=== PATIENT | female | born 1930 | race Caucasian/White ===

== ENCOUNTER 2016-03-21 10:07 | Emergency (ER) | payer OTHER ==
[~2016-03-21] VITALS: Ht 170.2 cm; Wt 61.3 kg
[2016-03-21] MEDS ORDERED: BUSPAR7.5 MG PO ×2 (10:17)
[2016-03-21] MEDS ORDERED: LORAZEPAM0.5 MG PO (10:17)
[2016-03-21] MEDS ORDERED: GABAPENTIN300 MG PO (10:17)
[2016-03-21] MEDS ORDERED: PAROXETINE HCL20 MG PO (10:17)
[2016-03-21] MEDS ORDERED: TOLTERODINE TART4 MG PO (10:18)
[2016-03-21] MEDS ORDERED: RALOXIFENE HCL60 MG PO (10:18)
[2016-03-21] MEDS ORDERED: DONEPEZIL HCL5 MG PO (10:18)
[2016-03-21] MEDS ORDERED: SIMVASTATIN40 MG PO (10:18)
[2016-03-21 11:41] LABS: EOSINOPHIL (%) 1.2 % (0-5); EOSINOPHIL COUNT 0.1 K/uL (0-0.3); IMMATURE GRANULOCYTE (%) 0.2 % (0.0-0.7); IMMATURE GRANULOCYTE COUNT 0.2 K/uL; LYMPHOCYTE COUNT 1.7 K/uL (1.0-2.8); MCH 30.6 PG (29.0-34.0); MCHC 33.6 G/DL (30.0-36.0); MCV 91.1 FL (83-99); MEAN PLAT.VOLUME 9.3 uM^3 (9.5-12.4); MONOCYTE COUNT 0.7 K/uL (0-0.8); NEUTROPHIL COUNT 6.7 K/uL (1.8-6.4); PLATELET COUNT 169 K/uL (156-360); RBC DIS.WIDTH-CV 14.2 % (11.8-14.6); RBC DIS.WIDTH-SD 45.6 % (39-53); RED BLOOD COUNT 4.28 M/uL (3.80-5.20); WHITE BLOOD COUNT 9.2 K/uL (4.1-10.2)
[2016-03-21 12:25] LABS: CHLORIDE 107 mEq/L (99-109); POTASSIUM 4.6 mEq/L (3.7-5.4); SODIUM 140 mEq/L (136-147)
[2016-03-21 12:26] LABS: GLUCOSE 104 mg/dL (70-99)
[2016-03-21 12:28] LABS: ANION GAP 9 MEQ/L (2-14)
[2016-03-21 12:30] LABS: GFR ESTIMATE (CALCULATED) > 59 mL/min/
[2016-03-21 12:31] LABS: UREA NITROGEN (BUN) 20 mg/dL (9-23)
[2016-03-21 13:08] LABS: ADD MIUA? YES; BILIRUBIN NEGATIVE; BLOOD NEGATIVE; COLOR YELLOW ((YELLOW)); GLUCOSE (STRIP) NEGATIVE; KETONES NEGATIVE; LEUKOCYTES SMALL; NITRITE NEGATIVE; PROTEIN (STRIP) NEGATIVE; SPECIFIC GRAVITY 1.022 (1.000-1.030)
[2016-03-21 13:31] LABS: BACTERIA RARE; CASTS NONE SEEN /LPF; CRYSTALS NONE SEEN; EPITHELIAL CELLS 1+; MUCUS NONE SEEN; RED BLOOD CELLS NONE SEEN /HPF (0-5); UCUL ADDED? NO; WHITE BLOOD CELLS RARE /HPF (0-5)
[2016-03-21] MEDS ORDERED: KEFLEX500 MG PO (13:58)
[2016-03-21 15:58] VITALS: BP 114/66
== END 2016-03-21 14:15 | disposition home or self-care (01) ==
LOC: EME 10:07
PROVIDERS: Emergency Medicine
DX: N39.0 Urinary tract infection, site not specified (principal); R41.82 Altered mental status, unspecified; E78.5 Hyperlipidemia, unspecified; Z87.891 Personal history of nicotine dependence
CPT/HCPCS: 70450; 71020; 80048; 81003; 85025; 99281; 99284

== ENCOUNTER 2016-07-03 07:40 | Emergency (ER) | payer OTHER ==
[~2016-07-03] VITALS: Ht 165.1 cm; Wt 60.2 kg
[~2016-07-03 07:40] MED LIST: BUSPAR7.5 MG PO; DONEPEZIL HCL5 MG PO; GABAPENTIN300 MG PO; KEFLEX500 MG PO; LORAZEPAM0.5 MG PO; PAROXETINE HCL20 MG PO; RALOXIFENE HCL60 MG PO; SIMVASTATIN40 MG PO; TOLTERODINE TART4 MG PO
[2016-07-03] MEDS ORDERED: CELECOXIB200 MG PO (07:58)
[2016-07-03 08:29] LABS: ADD MIUA? YES; BILIRUBIN NEGATIVE; BLOOD NEGATIVE; COLOR AMBER ((YELLOW)); GLUCOSE (STRIP) NEGATIVE; KETONES NEGATIVE; LEUKOCYTES SMALL; NITRITE POSITIVE; PROTEIN (STRIP) 100; SPECIFIC GRAVITY 1.015 (1.000-1.030)
[2016-07-03 08:56] LABS: BACTERIA 3+ /HPF; EPITHELIAL CELLS NONE SEEN /HPF; MUCUS NONE SEEN /LPF; UCUL ADDED? YES; WHITE BLOOD CELLS TNTC /HPF (0-5)
[2016-07-03 08:57] LABS: HEMATOCRIT 36.5 % (36.0-46.0); MCH 30.7 PG (29.0-34.0); MCHC 32.6 G/DL (30.0-36.0); MCV 94.1 FL (83-99); MEAN PLAT.VOLUME 9.7 uM^3 (9.5-12.4); PLATELET COUNT 167 K/uL (156-360); RBC DIS.WIDTH-CV 15.2 % (11.8-14.6); RED BLOOD COUNT 3.88 M/uL (3.80-5.20); WHITE BLOOD COUNT 8.9 K/uL (4.1-10.2)
[2016-07-03 09:08] LABS: CHLORIDE 106 mEq/L (99-109); POTASSIUM 4.2 mEq/L (3.7-5.4); SODIUM 137 mEq/L (136-147)
[2016-07-03 09:10] LABS: GLUCOSE 102 mg/dL (70-99)
[2016-07-03 09:12] LABS: ANION GAP 10 MEQ/L (2-14); TOTAL BILIRUBIN 1.5 mg/dL (0.0-1.0)
[2016-07-03 09:14] LABS: ALKALINE PHOSPHATASE 67 IU/L (3-129); GFR ESTIMATE (CALCULATED) 50 mL/min/
[2016-07-03 09:15] LABS: UREA NITROGEN (BUN) 18 mg/dL (9-23)
[2016-07-03] MEDS ORDERED: CIPRO500 MG PO (09:17)
[2016-07-03 09:36] VITALS: BP 120/59
== END 2016-07-03 09:38 | disposition home or self-care (01) ==
LOC: EME 07:40
PROVIDERS: Nurse Practitioner Family
DX: N39.0 Urinary tract infection, site not specified (principal); F41.9 Anxiety disorder, unspecified; F43.0 Acute stress reaction; E78.5 Hyperlipidemia, unspecified; Z85.3 Personal history of malignant neoplasm of breast; Z87.891 Personal history of nicotine dependence
CPT/HCPCS: 80053; 81003; 85027; 87077; 87086; 87186; 99281; 99284

== ENCOUNTER 2016-08-28 09:34 | Emergency (ER) | payer OTHER ==
[~2016-08-28] VITALS: Ht 165.1 cm; Wt 58.5 kg
[~2016-08-28 09:34] MED LIST changes: +CELECOXIB200 MG PO; +CIPRO500 MG PO
[2016-08-28 10:30] LABS: MCH 30.1 PG (29.0-34.0); MCV 91.5 FL (83-99); MEAN PLAT.VOLUME 10.3 uM^3 (9.5-12.4); PLATELET COUNT 172 K/uL (156-360); RBC DIS.WIDTH-CV 13.8 % (11.8-14.6); RBC DIS.WIDTH-SD 46.7 % (39-53); RED BLOOD COUNT 4.81 M/uL (3.80-5.20); WHITE BLOOD COUNT 7.2 K/uL (4.1-10.2)
[2016-08-28 10:38] LABS: CHLORIDE 108 mEq/L (99-109); POTASSIUM 4.2 mEq/L (3.7-5.4); SODIUM 139 mEq/L (136-147)
[2016-08-28 10:39] LABS: GLUCOSE 90 mg/dL (70-99)
[2016-08-28 10:41] LABS: ANION GAP 8 MEQ/L (2-14)
[2016-08-28 10:43] LABS: GFR ESTIMATE (CALCULATED) 50 mL/min/
[2016-08-28 10:44] LABS: UREA NITROGEN (BUN) 17 mg/dL (9-23)
[2016-08-28 10:55] LABS: ADD MIUA? YES; BILIRUBIN NEGATIVE; BLOOD NEGATIVE; COLOR YELLOW ((YELLOW)); GLUCOSE (STRIP) NEGATIVE; KETONES NEGATIVE; LEUKOCYTES TRACE; NITRITE NEGATIVE; PROTEIN (STRIP) NEGATIVE; SPECIFIC GRAVITY 1.012 (1.000-1.030)
[2016-08-28] MEDS ORDERED: PAXIL40 MG PO (11:11)
[2016-08-28] MEDS ORDERED: BACTRIM,SEPT1 TABLET PO (11:12)
[2016-08-28 11:14] LABS: EPITHELIAL CELLS 1+ /HPF; MUCUS 1+ /LPF
[2016-08-28 11:16] LABS: BACTERIA NONE SEEN /HPF; CALCIUM OXALATE CRYSTALS RARE /HPF; CASTS PRESENT /LPF; CRYSTALS PRESENT; HYALINE CASTS RARE /LPF; RED BLOOD CELLS 0-5 /HPF (0-5); UCUL ADDED? NO; URIC ACID CRYSTALS 3+ /HPF; WHITE BLOOD CELLS 0-5 /HPF (0-5)
[2016-08-28 13:00] VITALS: BP 106/70
== END 2016-08-28 13:02 | disposition home or self-care (01) ==
LOC: EME 09:34
DX: N39.0 Urinary tract infection, site not specified (principal); R32 Unspecified urinary incontinence; K59.00 Constipation, unspecified; E78.5 Hyperlipidemia, unspecified; Z90.12 Acquired absence of left breast and nipple; Z85.3 Personal history of malignant neoplasm of breast; Z96.641 Presence of right artificial hip joint; Z88.0 Allergy status to penicillin; Z87.891 Personal history of nicotine dependence
CPT/HCPCS: 74020; 80048; 81003; 85027; 99281; 99284

== ENCOUNTER 2016-11-30 20:31 | Emergency (ER) | payer OTHER ==
[~2016-11-30] VITALS: Ht 162.6 cm; Wt 60.1 kg
[~2016-11-30 20:31] MED LIST changes: +BACTRIM,SEPT1 TABLET PO; +PAXIL40 MG PO
[2016-11-30 21:38] LABS: HEMATOCRIT 43.6 % (36.0-46.0); MCH 30.2 PG (29.0-34.0); MCHC 33.5 G/DL (30.0-36.0); MCV 90.1 FL (83-99); MEAN PLAT.VOLUME 9.7 uM^3 (9.5-12.4); PLATELET COUNT 191 K/uL (156-360); RBC DIS.WIDTH-CV 13.8 % (11.8-14.6); RBC DIS.WIDTH-SD 45.3 % (39-53); RED BLOOD COUNT 4.84 M/uL (3.80-5.20); WHITE BLOOD COUNT 9.2 K/uL (4.1-10.2)
[2016-11-30 21:49] LABS: CHLORIDE 104 mEq/L (99-109); SODIUM 139 mEq/L (136-147)
[2016-11-30 21:50] LABS: GLUCOSE 96 mg/dL (70-99)
[2016-11-30 21:52] LABS: ANION GAP 11 MEQ/L (2-14)
[2016-11-30 21:54] LABS: GFR ESTIMATE (CALCULATED) > 59 mL/min/
[2016-11-30 21:55] LABS: UREA NITROGEN (BUN) 22 mg/dL (9-23)
[2016-11-30 23:04] LABS: TROP-I INTERPRETATION NEGATIVE; TROPONIN-I 0.01 ng/mL (0.0-0.30)
[2016-12-01 00:47] LABS: ADD MIUA? YES; BILIRUBIN NEGATIVE; BLOOD SMALL; COLOR YELLOW ((YELLOW)); GLUCOSE (STRIP) NEGATIVE; KETONES NEGATIVE; LEUKOCYTES LARGE; NITRITE NEGATIVE; PROTEIN (STRIP) NEGATIVE; SPECIFIC GRAVITY 1.014 (1.000-1.030); UROBILINOGEN 0.2 MG/DL (0.2-1.0)
[2016-12-01 01:05] LABS: BACTERIA NONE SEEN /HPF; EPITHELIAL CELLS RARE /HPF; MUCUS TRACE /LPF; UCUL ADDED? YES; WHITE BLOOD CELLS 30-40 /HPF (0-5)
[2016-12-01 02:03] VITALS: BP 133/87
== END 2016-12-01 02:04 | disposition home or self-care (01) ==
LOC: EME 20:31
PROVIDERS: Emergency Medicine
DX: R42 Dizziness and giddiness (principal); N39.0 Urinary tract infection, site not specified; E78.5 Hyperlipidemia, unspecified; M19.90 Unspecified osteoarthritis, unspecified site; F32.9 Major depressive disorder, single episode, unspecified; F41.9 Anxiety disorder, unspecified; Z85.3 Personal history of malignant neoplasm of breast; Z87.891 Personal history of nicotine dependence; Z88.0 Allergy status to penicillin
CPT/HCPCS: 70450; 71020; 80048; 81003; 84484; 85027; 87086; 93005; 99281; 99284

== ENCOUNTER 2017-05-14 18:59 | Inpatient (IN) | payer OTHER ==
[~2017-05-14] VITALS: Ht 165.1 cm; Wt 65.1 kg
[2017-05-14 20:13] LABS: BASOPHIL (%) 0.3 % (0-1); EOSINOPHIL (%) 0.9 % (0-5); EOSINOPHIL COUNT 0.1 K/uL (0-0.3); HEMOGLOBIN 15.4 G/DL (11.9-15.5); IMMATURE GRANULOCYTE (%) 0.4 % (0.0-0.7); LYMPHOCYTE (%) 12.4 % (15-42); LYMPHOCYTE COUNT 1.7 K/uL (1.0-2.8); MCH 30.7 PG (29.0-34.0); MONOCYTE (%) 8.3 % (3-12); MONOCYTE COUNT 1.2 K/uL (0-0.8); NEUTROPHIL (%) 77.7 % (45-76); NEUTROPHIL COUNT 10.9 K/uL (1.8-6.4); PLATELET COUNT 173 K/uL (156-360); RBC DIS.WIDTH-CV 13.3 % (11.8-14.6); RBC DIS.WIDTH-SD 42.7 % (39-53); RED BLOOD COUNT 5.01 M/uL (3.80-5.20)
[2017-05-14 20:20] LABS: PTT 27.4 SEC (25-37)
[2017-05-14 20:29] LABS: MCV 87.8 FL (83-99)
[2017-05-14 20:36] LABS: ALBUMIN 4.7 g/dL (3.2-4.8)
[2017-05-14 20:37] LABS: CHLORIDE 105 mEq/L (99-109); POTASSIUM 4.1 mEq/L (3.7-5.4); SODIUM 139 mEq/L (136-147)
[2017-05-14 20:39] LABS: GLUCOSE 101 mg/dL (70-99); TOTAL PROTEIN 7.1 g/dL (6.4-8.3)
[2017-05-14 20:41] LABS: TOTAL BILIRUBIN 1.2 mg/dL (0.0-1.0)
[2017-05-14 20:42] LABS: ALKALINE PHOSPHATASE 90 IU/L (3-129)
[2017-05-14 20:43] LABS: CREATININE 0.7 mg/dL (0.6-1.3); GFR ESTIMATE (CALCULATED) > 59 mL/min/
[2017-05-14 20:44] LABS: AST (GOT) 28 IU/L (2-34); UREA NITROGEN (BUN) 23 mg/dL (9-23)
[2017-05-14 20:46] LABS: ALT (GPT) 16 IU/L (3-49)
[2017-05-14] MEDS ORDERED: NIFEDIPINE ER30 MG PO (21:00)
[2017-05-14] MEDS ORDERED: SIMVASTATIN20 MG PO (21:02)
[2017-05-14] MEDS ORDERED: ESTRADIOL42.5 GM VG (21:02)
[2017-05-14] MEDS ORDERED: PAROXETINE HCL40 MG PO (21:02)
[2017-05-14] MEDS ORDERED: BUSPAR15 MG PO (21:03)
[2017-05-14] MEDS ORDERED: VITAMIN B-122500 MCG SL (21:13)
[2017-05-14] MEDS ORDERED: LO-DOSE ASPIRIN81 M2 PO (21:17)
[2017-05-14] MEDS ORDERED: CRANBERRY URIN1 EACH PO (21:17)
[2017-05-14] MEDS ORDERED: STOOL SOFTENER100 M1 PO (21:18)
[2017-05-14] MEDS ORDERED: VITAMIN D32000 UNI1 PO (21:20)
[2017-05-14 22:05] LABS: APPEARANCE CLEAR ((CLEAR)); BILIRUBIN NEGATIVE; BLOOD SMALL; COLOR STRAW ((YELLOW)); GLUCOSE (STRIP) NEGATIVE; KETONES 5; LEUKOCYTES NEGATIVE; NITRITE NEGATIVE; PROTEIN (STRIP) NEGATIVE; SPECIFIC GRAVITY 1.008 (1.000-1.030); UROBILINOGEN 0.2 MG/DL (0.2-1.0)
[2017-05-14 23:01] LABS: BACTERIA NONE SEEN /HPF; EPITHELIAL CELLS RARE /HPF; MUCUS NONE SEEN /LPF; RED BLOOD CELLS 0-5 /HPF (0-5); UCUL ADDED? NO; WHITE BLOOD CELLS 0-5 /HPF (0-5)
[2017-05-15 02:41] VITALS: BP 155/70
[2017-05-15 08:33] VITALS: BP 137/63
[2017-05-15 16:03] VITALS: BP 147/64
[2017-05-15 19:57] VITALS: BP 129/60
[2017-05-15 23:19] VITALS: BP 140/76
[2017-05-16 04:29] VITALS: BP 153/66
[2017-05-16 07:43] VITALS: BP 132/63
[2017-05-16 10:03] LABS: HEMATOCRIT 27.4 % (36.0-46.0); MCH 30.3 PG (29.0-34.0); MCHC 33.2 G/DL (30.0-36.0); MCV 91.3 FL (83-99); RBC DIS.WIDTH-SD 46.9 % (39-53)
[2017-05-16 10:11] LABS: HEMOGLOBIN 9.1 G/DL (11.9-15.5)
[2017-05-16 10:14] LABS: CHLORIDE 107 MEQ/L (99-109); CREATININE 0.6 MG/DL (0.6-1.3); GFR ESTIMATE (CALCULATED) > 59 mL/min/; GLUCOSE 151 mg/dL (70-99); POTASSIUM 3.6 MEQ/L (3.7-5.4); SODIUM 136 MEQ/L (136-147); UREA NITROGEN (BUN) 17 mg/dL (9-23)
[2017-05-16 10:20] LABS: BASOPHIL (%) 0.3 % (0-1); EOSINOPHIL COUNT 0.1 K/uL (0-0.3); IMMATURE GRANULOCYTE (%) 0.2 % (0.0-0.7); LYMPHOCYTE COUNT 0.9 K/uL (1.0-2.8); MONOCYTE (%) 11.5 % (3-12); MONOCYTE COUNT 1.2 K/uL (0-0.8); NEUTROPHIL COUNT 7.8 K/uL (1.8-6.4); PLAT.SUFFICIENCY DECREASED
[2017-05-16 10:21] LABS: PLATELET COUNT 109 K/uL (156-360)
[2017-05-16 11:38] VITALS: BP 134/64
[2017-05-16 16:38] VITALS: BP 130/86
[2017-05-16 20:00] VITALS: BP 116/54
[2017-05-16 23:38] VITALS: BP 141/61
[2017-05-17 03:54] VITALS: BP 138/65
[2017-05-17 06:14] LABS: BASOPHIL (%) 0.2 % (0-1); EOSINOPHIL (%) 0.2 % (0-5); HEMATOCRIT 23.2 % (36.0-46.0); IMMATURE GRANULOCYTE (%) 0.6 % (0.0-0.7); LYMPHOCYTE (%) 9.4 % (15-42); MCHC 34.5 G/DL (30.0-36.0); MCV 89.9 FL (83-99); MONOCYTE (%) 11.4 % (3-12); MONOCYTE COUNT 1.2 K/uL (0-0.8); NEUTROPHIL (%) 78.2 % (45-76); NEUTROPHIL COUNT 8.5 K/uL (1.8-6.4); PLATELET COUNT 108 K/uL (156-360); RBC DIS.WIDTH-CV 13.8 % (11.8-14.6); RBC DIS.WIDTH-SD 45.1 % (39-53); RED BLOOD COUNT 2.58 M/uL (3.80-5.20); WHITE BLOOD COUNT 10.8 K/uL (4.1-10.2)
[2017-05-17 06:32] LABS: CHLORIDE 104 MEQ/L (99-109); CREATININE 0.5 MG/DL (0.6-1.3); GFR ESTIMATE (CALCULATED) > 59 mL/min/; GLUCOSE 122 mg/dL (70-99); SODIUM 133 MEQ/L (136-147); UREA NITROGEN (BUN) 17 mg/dL (9-23)
[2017-05-17 06:37] LABS: POTASSIUM 4.5 MEQ/L (3.7-5.4)
[2017-05-17 07:29] LABS: POTASSIUM 3.9 MEQ/L (3.7-5.4)
[2017-05-17 08:24] VITALS: BP 138/63
[2017-05-17 16:24] VITALS: BP 117/55
[2017-05-17 20:32] VITALS: BP 130/59
[2017-05-18] VITALS (9 sets, daily range): BP systolic 121–144; BP diastolic 58–66
[2017-05-18 09:32] LABS: BASOPHIL (%) 0.2 % (0-1); EOSINOPHIL (%) 0.6 % (0-5); EOSINOPHIL COUNT 0.1 K/uL (0-0.3); HEMATOCRIT 21.8 % (36.0-46.0); HEMOGLOBIN 7.5 G/DL (11.9-15.5); IMMATURE GRANULOCYTE (%) 0.5 % (0.0-0.7); MCHC 34.4 G/DL (30.0-36.0); MCV 90.1 FL (83-99); MONOCYTE (%) 7.4 % (3-12); MONOCYTE COUNT 0.7 K/uL (0-0.8); NEUTROPHIL (%) 81.3 % (45-76); NEUTROPHIL COUNT 8.1 K/uL (1.8-6.4); PLATELET COUNT 127 K/uL (156-360); RBC DIS.WIDTH-CV 13.6 % (11.8-14.6); RBC DIS.WIDTH-SD 44.9 % (39-53); RED BLOOD COUNT 2.42 M/uL (3.80-5.20)
[2017-05-18 10:06] LABS: CHLORIDE 102 MEQ/L (99-109); CREATININE 0.5 MG/DL (0.6-1.3); GFR ESTIMATE (CALCULATED) > 59 mL/min/; GLUCOSE 161 mg/dL (70-99); POTASSIUM 3.7 MEQ/L (3.7-5.4); SODIUM 135 MEQ/L (136-147); UREA NITROGEN (BUN) 16 mg/dL (9-23)
[2017-05-18 21:28] LABS: STOOL OCCULT BLD 1ST SPECIMEN NEGATIVE
[2017-05-19 00:18] VITALS: BP 119/59
[2017-05-19 07:43] VITALS: BP 118/59
[2017-05-19 09:51] LABS: HEMATOCRIT 27.3 % (36.0-46.0); HEMOGLOBIN 9.4 G/DL (11.9-15.5); MCV 88.9 FL (83-99)
[2017-05-19 15:22] VITALS: BP 126/59
[2017-05-19 23:44] VITALS: BP 125/55
[2017-05-20 07:58] VITALS: BP 123/57
[2017-05-20 16:57] VITALS: BP 119/56
[2017-05-20 23:34] VITALS: BP 128/60
[2017-05-21 08:00] VITALS: BP 128/60
[2017-05-21 08:32] LABS: HEMATOCRIT 30.9 % (36.0-46.0); HEMOGLOBIN 10.2 G/DL (11.9-15.5); MCH 29.5 PG (29.0-34.0); MCV 89.3 FL (83-99); RBC DIS.WIDTH-CV 14.3 % (11.8-14.6); WHITE BLOOD COUNT 9.3 K/uL (4.1-10.2)
[2017-05-21 08:34] LABS: PLATELET COUNT 273 K/uL (156-360); RED BLOOD COUNT 3.46 M/uL (3.80-5.20)
[2017-05-21 09:17] LABS: CHLORIDE 101 MEQ/L (99-109); CREATININE 0.5 MG/DL (0.6-1.3); GFR ESTIMATE (CALCULATED) > 59 mL/min/; POTASSIUM 3.9 MEQ/L (3.7-5.4); SODIUM 137 MEQ/L (136-147); UREA NITROGEN (BUN) 15 mg/dL (9-23)
[2017-05-21 09:24] LABS: GLUCOSE 103 mg/dL (70-99)
[2017-05-21] MEDS ORDERED: POLYETHYLENE GL17 GM PO (09:34)
[2017-05-21] MEDS ORDERED: DURLAZA162.5 MG PO (09:36)
[2017-05-21 12:12] VITALS: BP 132/61
== END 2017-05-21 13:22 | DRG 470 ==
LOC: EME → EDBD 18:59 → EME 18:59 → EDOF 20:42 → 3EAST 20:42 → ENRESERV 20:43 → 3EAST 05-15 02:37
PROVIDERS: Emergency Medicine; Physician Assistant; Physician Assistant Medical; Student in an Organized Health Care Education/Training Program
PROC: 0SRS0JZ Replacement of Left Hip Joint, Femoral Surface with Synthetic Substitute, Open Approach (ICD-10-PCS; principal; 2017-05-15)
PROC: 30233N1 Transfusion of Nonautologous Red Blood Cells into Peripheral Vein, Percutaneous Approach (ICD-10-PCS; 2017-05-18)
DX: S72.012A Unspecified intracapsular fracture of left femur, initial encounter for closed fracture (principal); W07.XXXA Fall from chair, initial encounter; E87.6 Hypokalemia; D62 Acute posthemorrhagic anemia; R09.02 Hypoxemia; D72.829 Elevated white blood cell count, unspecified; I10 Essential (primary) hypertension; M19.90 Unspecified osteoarthritis, unspecified site; R32 Unspecified urinary incontinence; E53.8 Deficiency of other specified B group vitamins; M81.0 Age-related osteoporosis without current pathological fracture; F03.90 Unspecified dementia, unspecified severity, without behavioral disturbance, psychotic disturbance, mood disturbance, and anxiety; E78.5 Hyperlipidemia, unspecified; F32.9 Major depressive disorder, single episode, unspecified; F41.0 Panic disorder [episodic paroxysmal anxiety]; E78.00 Pure hypercholesterolemia, unspecified; Z87.891 Personal history of nicotine dependence; Z82.49 Family history of ischemic heart disease and other diseases of the circulatory system; Z85.3 Personal history of malignant neoplasm of breast; Z90.12 Acquired absence of left breast and nipple; Z96.641 Presence of right artificial hip joint
CPT/HCPCS: 71045; 73502; 80048; 80053; 81003; 82272; 84999; 85014; 85018; 85025; 85027; 85610; 85730; 86850; 86900; 86901; 86920; 93005; 94799; 97530 GO; 97530 GP; 99281; 99285; J0131; J0690; J1644; J2270; J2370; J2405; J7030; J7050; P9016; S0020